=== PATIENT | male | born 1985 | race Two or more races ===

== ENCOUNTER 2017-03-09 22:18 | Emergency (ER) | payer MEDICAID ==
[~2017-03-09] VITALS: Ht 165.1 cm; Wt 85.3 kg
[2017-03-09] MEDS ORDERED: BUPIVACAINE 0.25% ONE (22:59)
[2017-03-09] MEDS ORDERED: CLOVE OIL TP ONE (23:00)
[2017-03-09] MEDS ORDERED: BUPIVACAINE 0.25% INFIL ONE (23:00)
[2017-03-09] MEDS ORDERED: LIDOCAINE 1%, 20ML SQ ONE (23:00)
[2017-03-09] MEDS ORDERED: LIDOCAINE 1%, 20ML ONE (23:00)
[2017-03-10 00:14] VITALS: BP 129/81
== END 2017-03-10 00:16 | disposition home or self-care (01) ==
LOC: ED 23:59
DX: M27.3 Alveolitis of jaws (principal); K08.89 Other specified disorders of teeth and supporting structures
CPT/HCPCS: 64400; 64450

== ENCOUNTER 2017-08-03 05:25 | Emergency (ER) | payer MEDICAID ==
[~2017-08-03] VITALS: Ht 165.1 cm; Wt 83.6 kg
[2017-08-03 05:27] VITALS: BP 128/77
[2017-08-03 06:27] LABS: RAPID INFLUENZA A Negative (Negative); RAPID INFLUENZA B Negative (Negative)
== END 2017-08-03 06:52 | disposition home or self-care (01) ==
LOC: ED 06:27
DX: J02.9 Acute pharyngitis, unspecified (principal)
CPT/HCPCS: 71046; 87081; 87400; 87880; 99285